=== PATIENT | male | born 1985 | race Caucasian/White ===

== ENCOUNTER 2022-02-21 12:05 | Emergency (ER) | payer BC ==
[2022-02-21 12:12] VITALS: BP 151/80; PULSE 87
[2022-02-21] MEDS: Ketorolac 30 MG/ML SDV IM ONE (12:32)
[2022-02-21] MEDS: Morphine 2 MG/ML SYRINGE IM ONE (12:59)
[2022-02-21] MEDS: Diphtheria,Pertussis(Acell),Tetanus Vaccine 0.5 ML Syringe IM ONE (13:38)
== END 2022-02-21 13:40 | disposition home or self-care (01) ==
LOC: LL.ED 12:05
DX: S67.193A Crushing injury of left middle finger, initial encounter (principal); S61.213A Laceration without foreign body of left middle finger without damage to nail, initial encounter; F17.210 Nicotine dependence, cigarettes, uncomplicated; Z23 Encounter for immunization; W23.1XXA Caught, crushed, jammed, or pinched between stationary objects, initial encounter
CPT/HCPCS: 12001; 73130-LT; 90471; 90715; 96372; 99283-25; J1885; J2270